=== PATIENT | male | born 1940 | race Caucasian/White ===

== ENCOUNTER → 2019-08-11 | Outpatient (CLI) | payer MEDICARE, BC, OTHER ==
[~2019-08-11] MED LIST: GASTROGRAFIN SOLUTION 30ML (Q9963) As Ordered ONE; ISOVUE-370 76% 100ML VIAL As Ordered ONE; LOSA50TA88 PO
--- NOTE | 2019-08-11 17:01 | REP ---
CT CHEST WITH IV CONTRAST: TECHNIQUE: Axial contrast-enhanced images from the thoracic inlet to the upper abdomen using 100 mL Isovue-370 intravenous contrast material with multiplanar reformations. There are no comparison studies. There are moderate emphysematous changes and interstitial fibrosis bilaterally. There is mild bronchiectasis as well. A calcified granuloma is seen in the right lung apex. A large calcific granuloma is seen in the right lower lobe. There is no suspicious pulmonary nodule. No consolidation is seen. No axillary adenopathy is seen. There are mildly enlarged subcarinal lymph nodes with a marga mass having a short-axis dimension of 1.9 cm. A couple of small calcifications are seen at the inferior margin of this marga mass. No other significant adenopathy is seen in the mediastinal or hilar regions. Heart is normal in size. There is no pleural or pericardial effusion. Thoracic aorta is not dilated with mild scattered atherosclerotic calcification. There are degenerative changes of the spine. Destructive mass lesion involves the L1 vertebral body and posterior elements. IMPRESSION: Destructive lesion L1 vertebral body and posterior elements with associated soft tissue mass at that location. The lungs show chronic emphysematous and fibrotic changes as well as two calcified granulomas in the right lung. No suspicious pulmonary nodule. There is mild subcarinal adenopathy which is nonspecific. Two small calcifications at the inferior margin of this marga mass may indicate that this is due to granulomatous disease. Electronically Signed by Richard Glover MD 08/12/2019 12:53 P
--- NOTE | 2019-08-11 17:13 | REP ---
REASON FOR EXAM: History of metastatic cancer with osseous involvement. There are no priors of comparison. CONTRAST: 100 mL Isovue-370. Seen in the posterior segment of the right lobe of the liver, there is a subcentimeter sized focal area of low density which shows no evidence of enhancement and is likely a tiny simple cyst or focal fatty deposit. It is too small for precise CT characterization. The gallbladder and spleen are within normal limits. The pancreas and adrenal glands are unremarkable. There are numerable low density structures seen throughout the right kidney, the largest is in the interpolar region and measures approximately 2.5 cm. This has near water density Hounsfield unit readings as do the remainder of the smaller low density structures. There is one similar finding seen in the left kidney. There are no enhancing renal lesions. The abdominal aorta and para-aortic regions are within normal limits. There is colonic interposition to the liver. The bowel loops and their mesenteries are otherwise unremarkable. There is no free fluid or free air. There is no evidence of an intra-abdominal mass or adenopathy. CT PELVIS: There is no evidence of a pelvic mass or adenopathy. The bowel loops and their mesenteries are within normal limits. There is no free fluid or free air. Bone window technique throughout the examination shows a large mass lesion destroying the L1 vertebral body and invading the central canal if not arising from it, causing marked central canal stenosis and possible marked cord compression, if not arising from the cord. In addition, there are numerable small focal areas of decreased density seen throughout the axial skeleton and possibly within numerable ribs. These are millimeter in size. There is bilateral SI joint sclerosis, left greater than right. IMPRESSION: 1. Concerning destruction of L1 with related findings as described above. A phone call was placed to Dr. Yunior Thorne to discuss this finding with him and recommend immediate emergent contrast-enhanced MRI so as it could be compared to the 08/05/2019 contrast-enhanced MRI if necessary. In addition, I will recommend emergent neurosurgical consultation at this time. 2. Likely tiny simple hepatic cyst or focal fatty deposit, as described above. 3. Renal cysts as described above. 4. Possible diffuse tiny metastatic osseous lesions, as described above. Dr. Thorne returned call and these findings and recommendations were discussed. Electronically Signed by Merrill Camacho DO 08/11/2019 08:34 P
== END ==
LOC: M RAD 13:57
PROVIDERS: ATTEND Internal Medicine Hematology & Oncology
DX: C79.51 Secondary malignant neoplasm of bone (principal)